=== PATIENT | male | born 1950 | race Caucasian/White ===

== ENCOUNTER 2020-03-27 08:47 | Emergency (ER) | payer MEDICARE, OTHER ==
[~2020-03-27] VITALS: Ht 177.8 cm; Wt 95.3 kg
[2020-03-27] MEDS ORDERED: IV NORMAL SALINE 500 ML BAG IV ONE (09:15)
--- NOTE | 2020-03-27 09:15 | NUR ---
pt had subrapubic catheter for urin retention 2 years
--- NOTE | 2020-03-27 09:15 | NUR ---
Recived pt 69 years male came by [facility] from [facility] awake and alert c/o pain in both leg cramping pt hx a.fib pt had f/c for urine retention and last leal 2 weeks ago and bp in low side 86/57mmhg dineses sob or chest pain
[2020-03-27] MEDS ORDERED: MELA5TAB PO (09:16)
[2020-03-27] MEDS ORDERED: ATOR20TA PO (09:16)
[2020-03-27] MEDS ORDERED: OLAN20TA3 PO (09:16)
[2020-03-27] MEDS ORDERED: ALEN70TA80 PO (09:16)
[2020-03-27] MEDS ORDERED: FURO20TA4 PO (09:16)
[2020-03-27] MEDS ORDERED: ASPI-869 PO (09:16)
[2020-03-27] MEDS ORDERED: MULT-594 PO (09:16)
[2020-03-27] MEDS ORDERED: DEUT12TA PO (09:16)
[2020-03-27] MEDS ORDERED: ESCI5TAB PO (09:16)
[2020-03-27] MEDS ORDERED: UMEC62.5 IH (09:16)
[2020-03-27 09:44] LABS: BASOPHILS # (AUTO) 0.1 K/uL (0.0-8.0); BASOPHILS % (AUTO) 0.7 % (0.0-2.0); EOSINOPHILS # (AUTO) 0.1 K/uL (0.0-0.7); HEMATOCRIT 38.3 % (36.7-47.1); HEMOGLOBIN 13.1 g/dL (12.5-16.3); LYMPHOCYTES # (AUTO) 0.3 K/uL (20.0-40.0); LYMPHOCYTES % (AUTO) 3.5 % (20.5-51.5); MEAN CORPUSCULAR HEMOGLOBIN 32.5 uug (23.8-33.4); MEAN CORPUSCULAR HGB CONC 34 g/dL (32.5-36.3); MEAN CORPUSCULAR VOLUME 95.1 fL (73.0-96.2); MONOCYTES # (AUTO) 0.9 K/uL (2.0-10.0); MONOCYTES % (AUTO) 11.8 % (0.0-11.0); PLATELET COUNT (AUTO) 147 K/uL (152-348); RED BLOOD CELL COUNT(AUTO) 4.03 MIL/uL (4.06-5.63); WHITE BLOOD COUNT (AUTO) 7.3 K/uL (3.6-10.2)
--- NOTE | 2020-03-27 10:00 | NUR ---
blood drow by lab tack blood culure x2 blood drow UA AND UC GOTING from f/c sent to lab inserted ango cath # 20 on lt wrest ivf ns 500ml infused and patent
[2020-03-27 10:14] LABS: BILIRUBIN,DIRECT 0.1 mg/dL (0.0-0.2); BILIRUBIN,TOTAL 0.5 mg/dL (0.2-1.0); CREATININE 0.9 mg/dL (0.6-1.3); POTASSIUM 5.4 mmol/L (3.5-5.1)
[2020-03-27 10:20] LABS: *BILIRUBIN,URIN NEGATIVE (NEGATIVE); *BLOOD, URINE 2+ (NEGATIVE); *CLARITY,URINE SLIGHTLY CLOUDY (CLEAR); *COLOR,URINE YELLOW (YELLOW); *KETONES,URINE NEGATIVE (NEGATIVE); LEUKOCYTE ESTERASE ,URINE 2+ (NEGATIVE); NITRITE, URINE POSITIVE (NEGATIVE); PH,URINE 8.5 (5.0-8.0); UGLUCOSE NEGATIVE (NEGATIVE)
[2020-03-27 10:28] LABS: MAGNESIUM 1.9 mg/dL (1.8-2.4)
[2020-03-27 10:36] LABS: THYROID STIMULATING HORMONE 0.756 mIU/mL (0.358-3.740)
--- NOTE | 2020-03-27 10:54 | NUR ---
compled 500ml nd bp 89/58mmhg DR. KRAUS HERE AT bed side aware about BP 89/58
[2020-03-27] MEDS ORDERED: CEFTRIAXONE 1 G in IV DEXTROSE 5% 50 ML IV ONE (11:00)
[2020-03-27] MEDS ORDERED: ACETAMINOPHEN ES 500 MG TABLET PO ONE (11:00)
--- NOTE | 2020-03-27 11:12 | NUR ---
PT HAD SUPRPUBIC CATHER FOR urin retention not f/c for 2 years
[2020-03-27] MEDS ORDERED: ACETAMINOPHEN ES 500 MG TABLET ONE (11:13)
[2020-03-27] MEDS ORDERED: CEFTRIAXONE /D5W 50ML IVPB **ER PYXIS IV ONE (11:14)
[2020-03-27] MEDS ORDERED: CEPH500C2 PO (11:41)
--- NOTE | 2020-03-27 12:00 | NUR ---
plan of care transfer back to [facility] hand off to Isabella (med tach ) about tx and plan of care d/c back with RX
--- NOTE | 2020-03-27 12:19 | NUR ---
Called kenyatta ( [facility] ) [phone] arrang one will here at [phone] vs stable for pt
[2020-03-27 13:22] LABS: BACTERIA,URINE MANY /HPF (NONE SEEN); SQUAMOUS EPITHELIAL CELL,UR FEW /HPF (NONE SEEN)
[2020-03-27 13:23] LABS: URINE AMORPHOUS PHOSPHATES MODERATE /HPF
--- NOTE | 2020-03-27 13:34 | NUR ---
Removed IV intact, site okay, bandaged.
--- NOTE | 2020-03-27 13:53 | NUR ---
Report and pt d/c instructions given to EMT's, pt transferred.
[2020-03-27 13:54] VITALS: BP 119/71
== END 2020-03-27 13:56 ==
LOC: ER 08:47
DX: R25.2 Cramp and spasm (principal); T83.510A Infection and inflammatory reaction due to cystostomy catheter, initial encounter; Z86.16 Personal history of COVID-19; Z95.0 Presence of cardiac pacemaker; J44.9 Chronic obstructive pulmonary disease, unspecified; Z88.8 Allergy status to other drugs, medicaments and biological substances; Z87.891 Personal history of nicotine dependence; F39 Unspecified mood [affective] disorder; Z79.899 Other long term (current) drug therapy; G24.01 Drug induced subacute dyskinesia; I48.91 Unspecified atrial fibrillation; I50.9 Heart failure, unspecified; Z79.82 Long term (current) use of aspirin; D69.6 Thrombocytopenia, unspecified; E87.5 Hyperkalemia
CPT/HCPCS: 36415; 71045; 80048; 80076; 81001; 83605; 83735; 83880; 84145; 84443; 84484; 85025; 85730; 87040 ×2; 87086; 93005; 96361; 96365; 99285; J0696; 70030-TC; A9150; J3490; J7030

== ENCOUNTER 2020-10-15 12:32 | Emergency (ER) | payer MEDICARE, OTHER ==
[~2020-10-15] VITALS: Ht 175.3 cm; Wt 90.7 kg
[~2020-10-15 12:32] MED LIST: ALEN70TA80 PO; ASPI-869 PO; ATOR20TA PO; CEPH500C2 PO; DEUT12TA PO; ESCI5TAB PO; FURO20TA4 PO; MELA5TAB PO; MULT-594 PO; OLAN20TA3 PO; UMEC62.5 IH
--- NOTE | 2020-10-15 12:40 | NUR ---
Patient brought in by [facility] [id number] for a mechanical fall at residence (assisted living), patient is alert and oriented, states he tripped
--- NOTE | 2020-10-15 12:42 | NUR ---
at bedside for assessment
--- NOTE | 2020-10-15 13:15 | NUR ---
PAtient taken to Radiology for CT of head and neck as well at x-ray of bilateral knees after mechanical fall
--- NOTE | 2020-10-15 14:10 | NUR ---
Per pt may be d/c back to his assisted living facility. Called [facility] for transport, eta 30 mins.
--- NOTE | 2020-10-15 15:19 | NUR ---
patient being picked up by [facility] at this time, [facility] called and informed that patient will be returning, Sister (Stephen) informed of patients status. Patient discharged to home in stable condition. Written and verbal after care instructions given. No signs of acute distress noted. Patient verbalizes understanding of instructions. Stressed follow up or return to ER for worsening s/s.
[2020-10-15 15:25] VITALS: BP 136/71
== END 2020-10-15 15:28 ==
LOC: ER 12:32
DX: M25.562 Pain in left knee (principal); M25.561 Pain in right knee; M85.862 Other specified disorders of bone density and structure, left lower leg; M85.861 Other specified disorders of bone density and structure, right lower leg; Z95.0 Presence of cardiac pacemaker; I48.91 Unspecified atrial fibrillation; Z79.82 Long term (current) use of aspirin; Z79.899 Other long term (current) drug therapy; J44.9 Chronic obstructive pulmonary disease, unspecified; S80.212A Abrasion, left knee, initial encounter; S80.211A Abrasion, right knee, initial encounter; W01.0XXA Fall on same level from slipping, tripping and stumbling without subsequent striking against object, initial encounter; Y92.099 Unspecified place in other non-institutional residence as the place of occurrence of the external cause
CPT/HCPCS: 70450; 72125; A4663

== ENCOUNTER 2021-10-10 13:36 | Emergency (ER) | payer MEDICARE, OTHER ==
[~2021-10-10] VITALS: Ht 182.9 cm; Wt 81.6 kg
[2021-10-10] MEDS ORDERED: UMEC1BLS IH (14:00)
[2021-10-10] MEDS ORDERED: LOPE2TAB25 PO (14:00)
[2021-10-10] MEDS ORDERED: BUDE10.22 INH (14:00)
[2021-10-10] MEDS ORDERED: LORA-259 PO (14:00)
[2021-10-10] MEDS ORDERED: BACL10TA PO (14:00)
[2021-10-10] MEDS ORDERED: TRAZ-257 PO (14:00)
[2021-10-10] MEDS ORDERED: OLAN5TAB3 PO (14:00)
[2021-10-10] MEDS ORDERED: POLY17PO4 PO (14:00)
[2021-10-10] MEDS ORDERED: TAMS-3 PO (14:00)
[2021-10-10] MEDS ORDERED: ACET-73 PO (14:00)
[2021-10-10] MEDS ORDERED: diphenhydrAMINE 50 MG/1 ML VIAL IV ONE (14:15)
[2021-10-10] MEDS ORDERED: IV NORMAL SALINE 500 ML BAG IV ONE (14:15)
[2021-10-10 14:28] LABS: CARBON DIOXIDE 27 mmol/L (21-32); CHLORIDE 98 mmol/L (98-107); CREATININE 1.1 mg/dL (0.6-1.3); GLUCOSE 103 mg/dL (74-106); POTASSIUM 4.4 mmol/L (3.5-5.1); UREA NITROGEN, BLOOD 7 mg/dL (7-18)
[2021-10-10 14:30] LABS: HEMATOCRIT 36.4 % (36.7-47.1); MEAN CORPUSCULAR HEMOGLOBIN 30.1 uug (23.8-33.4); MEAN CORPUSCULAR VOLUME 90.2 fL (73.0-96.2); PLATELET COUNT (AUTO) 231 K/uL (152-348)
[2021-10-10 14:40] LABS: ALANINE AMINOTRANSFERASE 13 U/L (16-63); ALKALINE PHOSPHATASE 106 U/L (50-136); ASPARTATE AMINOTRANSFERASE 14 U/L (15-37); BILIRUBIN,DIRECT 0.3 mg/dL (0.0-0.2); CREATINE KINASE, TOTAL 109 U/L (39-308); TOTAL PROTEIN, SERUM 6.1 g/dL (6.4-8.2)
--- NOTE | 2021-10-10 14:59 | NUR ---
pt is in room #2b. dr Torres evaluated the pt.
[2021-10-10 15:00] LABS: *BILIRUBIN,URIN NEGATIVE (NEGATIVE); *CLARITY,URINE SLIGHTLY CLOUDY (CLEAR); *COLOR,URINE YELLOW (YELLOW); *KETONES,URINE NEGATIVE (NEGATIVE); *UROBILINOGEN,URINE 0.2 E.U./dl (NORMAL); LEUKOCYTE ESTERASE ,URINE 3+ (NEGATIVE); NITRITE, URINE POSITIVE (NEGATIVE); UGLUCOSE NEGATIVE (NEGATIVE)
[2021-10-10 15:02] LABS: *BLOOD, URINE TRACE (NEGATIVE)
[2021-10-10] MEDS ORDERED: diphenhydrAMINE 50 MG/1 ML VIAL ONE (15:02)
[2021-10-10] MEDS ORDERED: SULF1TAB48 PO (15:44)
[2021-10-10] MEDS ORDERED: SULFAMETH/TRIMETH 800/160 MG TABLET PO ONE (15:45)
[2021-10-10] MEDS ORDERED: SULFAMETH/TRIMETH 800/160 MG TABLET ONE (15:57)
--- NOTE | 2021-10-10 17:55 | NUR ---
PT WAS D/C'd TO HIS NURSING FACILITY VIA [facility]. D/C INSTRUCTIONS GIVEN TO THE PT BY DR BOX.
[2021-10-10 17:56] VITALS: BP 113/69
[2021-10-10 18:04] LABS: BACTERIA,URINE MODERATE /HPF (NONE SEEN); SQUAMOUS EPITHELIAL CELL,UR FEW /HPF (NONE SEEN)
== END 2021-10-10 17:57 | disposition home or self-care (01) ==
LOC: ER 13:36
DX: Z04.3 Encounter for examination and observation following other accident (principal); N39.0 Urinary tract infection, site not specified; G25.71 Drug induced akathisia; G24.01 Drug induced subacute dyskinesia; G25.81 Restless legs syndrome; F17.200 Nicotine dependence, unspecified, uncomplicated; F39 Unspecified mood [affective] disorder; Z79.899 Other long term (current) drug therapy; J44.9 Chronic obstructive pulmonary disease, unspecified; I48.91 Unspecified atrial fibrillation; Z95.0 Presence of cardiac pacemaker; Z79.82 Long term (current) use of aspirin; N13.9 Obstructive and reflux uropathy, unspecified; Z93.6 Other artificial openings of urinary tract status; I50.30 Unspecified diastolic (congestive) heart failure; I48.92 Unspecified atrial flutter; G31.84 Mild cognitive impairment of uncertain or unknown etiology; D64.9 Anemia, unspecified; M43.22 Fusion of spine, cervical region; M47.812 Spondylosis without myelopathy or radiculopathy, cervical region
CPT/HCPCS: 99285; 70450; 96374; 71045; 96361; 80076; 80048; 81001; 82550; 85025; 87186; 87086; 87077; 84484; 36415; 93005; 72170; 72125; J1200; J7040; A4663

== ENCOUNTER 2021-10-23 21:05 | Inpatient (IN) | payer MEDICARE, OTHER ==
[~2021-10-23] VITALS: Ht 172.7 cm; Wt 78.1 kg
[~2021-10-23 21:05] MED LIST changes: +ACET-73 PO; +BACL10TA PO; +BUDE10.22 INH; -CEPH500C2 PO; +LOPE2TAB25 PO; +LORA-259 PO; +OLAN5TAB3 PO; +POLY17PO4 PO; +SULF1TAB48 PO; +TAMS-3 PO; +TRAZ-257 PO; +UMEC1BLS IH
--- NOTE | 2021-10-23 21:28 | NUR ---
Dr. Guevara at bedside for MSE.
[2021-10-23] MEDS ORDERED: IV NORMAL SALINE 1000 ML BAG IV ONE (22:00)
--- NOTE | 2021-10-23 22:16 | NUR ---
X Ray at bedside
[2021-10-23] MEDS ORDERED: OXYCODONE/APAP 5-325 MG TABLET ONE (22:24)
[2021-10-23 22:27] LABS: MEAN CORPUSCULAR HEMOGLOBIN 29.9 uug (23.8-33.4); MEAN CORPUSCULAR VOLUME 91.3 fL (73.0-96.2); PLATELET COUNT (AUTO) 337 K/uL (152-348)
[2021-10-23] MEDS ORDERED: OXYCODONE/APAP 5-325 MG TABLET PO ONE (22:30)
[2021-10-23 22:33] LABS: CREATININE 1.3 mg/dL (0.6-1.3); POTASSIUM 3.7 mmol/L (3.5-5.1)
[2021-10-23] MEDS ORDERED: ASPI81TA31 PO (22:38)
[2021-10-23 22:45] LABS: BILIRUBIN,DIRECT 0.5 mg/dL (0.0-0.2); BILIRUBIN,TOTAL 1.7 mg/dL (0.2-1.0); TOTAL PROTEIN, SERUM 6.7 g/dL (6.4-8.2)
[2021-10-23 23:27] LABS: *BILIRUBIN,URIN 1+ (NEGATIVE); *BLOOD, URINE NEGATIVE (NEGATIVE); *COLOR,URINE YELLOW (YELLOW); *KETONES,URINE TRACE (NEGATIVE); LEUKOCYTE ESTERASE ,URINE 1+ (NEGATIVE); NITRITE, URINE NEGATIVE (NEGATIVE); UGLUCOSE NEGATIVE (NEGATIVE)
[2021-10-23 23:30] LABS: *CLARITY,URINE HAZY (CLEAR)
[2021-10-24] MEDS ORDERED: SWABABLE VALVE TRANSFER SET EA MC ONE (00:04)
[2021-10-24] MEDS ORDERED: IV NORMAL SALINE 250 ML IV ONE (00:05)
[2021-10-24] MEDS ORDERED: IOHEXOL 350 100 ML INFUS..BTL ONE (00:06)
--- NOTE | 2021-10-24 00:07 | NUR ---
Pt out of ER for CT.
--- NOTE | 2021-10-24 00:41 | NUR ---
Pt back to ER from CT.
[2021-10-24] MEDS ORDERED: PIPERACILLIN SODIUM/TAZOBACTAM 3.375 G in IV DEXTROSE 5% 50 ML IV ONE (01:00)
[2021-10-24] MEDS ORDERED: PIPERACILLIN/TAZOBACTAM/D5W 50 ML IV ONE (01:09)
--- NOTE | 2021-10-24 02:43 | NUR ---
Called [facility] to page Anh Stewart NP.
[2021-10-24] MEDS ORDERED: levoFLOXacin 500 MG/D5W 500 MG in PREMIXED 1 EACH IV SCH (03:00)
[2021-10-24] MEDS ORDERED: IV NS 1000 ML 1,000 ML IV PRN (03:00)
[2021-10-24] MEDS ORDERED: ONDANSETRON 4 MG/2 ML VIAL IV PRN (03:00)
--- NOTE | 2021-10-24 03:00 | NUR ---
Dr. Guevara on panel call with Anh Stewart NP.
[2021-10-24] MEDS ORDERED: IV NORMAL SALINE 1000 ML BAG IV ONE (03:15)
[2021-10-24] MEDS ORDERED: FLEET ENEMA 133 ML BOTTLE RC ONE ×2 (03:30→06:00)
[2021-10-24] MEDS ORDERED: VANCOMYCIN IV 1,750 MG in IV DEXTROSE 5% 500 ML IV ONE (03:45)
--- NOTE | 2021-10-24 03:51 | NUR ---
Report given to Elizabet ALBRIGHT Tele.
--- NOTE | 2021-10-24 05:00 | NUR ---
Received pt from er via chang. Pt on 2l nasal cannula. Dx: Severe sepsis . Under Pat RADIOLOGIC TECHNOLOGIST MAMMOGRAM. Belonging list done. Admission process and care plan initiated. [facility] assessment done. Pt has skin issues and photos put to chart. Safety and comfort provided. Will continue to monitor.
[2021-10-24 05:30] VITALS: BP 98/60
--- NOTE | 2021-10-24 05:32 | NUR ---
Verify the pt status if its tele or tele td. As per Pat pt will be on telemetry. Give update regarding the fluid challenge for sepsis.
[2021-10-24] MEDS ORDERED: METRONIDAZOLE 500 MG/NS 100ML 500 MG in PREMIXED 1 EACH IV SCH (06:00)
--- NOTE | 2021-10-24 06:05 | NUR ---
Small Bowel Follow through discontinue and keep disimpacting the pt as per Pat GEODETIC COMPUTATOR ordered.
--- NOTE | 2021-10-24 06:59 | NUR ---
Pt in no acute distress. Pt on 2l nasal cannula. Iv intact. Pt given Fleet enema and disimpacted. Safety and comfort provided.All needs are met. Will endorse to incoming nurse for continuity of care.
[2021-10-24] MEDS: PANTOPRAZOLE SODIUM 40 MG VIAL IV SCH (08:18)
[2021-10-24] MEDS: levoFLOXacin 500 MG/D5W 500 MG in PREMIXED 1 EACH IV SCH (08:18)
[2021-10-24 09:01] LABS: HEMATOCRIT 38.5 % (36.7-47.1); MEAN CORPUSCULAR HEMOGLOBIN 29.9 uug (23.8-33.4); MEAN CORPUSCULAR VOLUME 92.3 fL (73.0-96.2); PLATELET COUNT (AUTO) 344 K/uL (152-348)
--- NOTE | 2021-10-24 09:01 | NUR ---
Followed up with lab for the test per MD. Per lab, they will see patient shortly.
[2021-10-24 09:46] LABS: CREATININE 1.2 mg/dL (0.6-1.3); POTASSIUM 4.6 mmol/L (3.5-5.1)
[2021-10-24] MEDS: METRONIDAZOLE 500 MG/NS 100ML 500 MG in PREMIXED 1 EACH IV SCH ×2 (10:10→17:16)
[2021-10-24] MEDS: VANCOMYCIN IV 750 MG in IV DEXTROSE 5% 250 ML IV SCH ×2 (11:20→22:32)
[2021-10-24 11:32] VITALS: BP 89/53
--- NOTE | 2021-10-24 11:42 | NUR ---
Informed MD, patient bp 89/53mmHg, HR 84, saturation 100% on 2L RA. MD order to give 500ml NS.
[2021-10-24] MEDS ORDERED: IV NORMAL SALINE 500 ML IV ONE (12:15)
--- NOTE | 2021-10-24 13:25 | NUR ---
Conservator Charmaine ([phone]) called and gave the number of the PCP, Dr. Buck Hancock for update/history of the patient. Informed Dr Redman.
--- NOTE | 2021-10-24 13:55 | NUR ---
BP improved after bolus. latest reading 101/56mmHg, HR81. Pale skin noted. no distress identified. will continue to monitor.
[2021-10-24] MEDS ORDERED: TAMS-3 PO (14:03)
[2021-10-24] MEDS ORDERED: TRAZ-257 PO (14:03)
[2021-10-24] MEDS ORDERED: ACET-73 PO (14:03)
[2021-10-24] MEDS ORDERED: BUDE10.2 IH (14:03)
[2021-10-24] MEDS ORDERED: POLY17PO4 PO (14:03)
[2021-10-24] MEDS ORDERED: MULT-594 PO (14:03)
[2021-10-24] MEDS ORDERED: BACL10TA PO (14:03)
[2021-10-24] MEDS ORDERED: LOPE2CAP PO (14:03)
[2021-10-24] MEDS ORDERED: LORA-259 PO (14:03)
[2021-10-24 15:19] LABS: BACTERIA,URINE MANY /HPF (NONE SEEN)
[2021-10-24 15:20] LABS: SQUAMOUS EPITHELIAL CELL,UR FEW /HPF (NONE SEEN); YEAST,URINE MODERATE /HPF (NONE SEEN)
[2021-10-24 15:43] VITALS: BP 96/44
--- NOTE | 2021-10-24 16:09 | NUR ---
Noted with involuntary leg movement (bilateral). made aware.
[2021-10-24] MEDS: LORAZEPAM 1 MG TABLET PO PRN ×2 (17:16→23:34)
--- NOTE | 2021-10-24 18:21 | NUR ---
Patient with multiple watery BM during the shift. No other concern noted. ativan given PRN as ordered. UA collected for culture. Unable to get sample for resp. culture as ordered, no secretions obtained at this time. Will endorse to the next shift for continuity of care.
--- NOTE | 2021-10-24 19:30 | NUR ---
Received patient lying in bed. AAOX3. In no acute distress. Denies any pain or SOB. O2 at 2LPM via NC in place. O2 sat at 99%. IV site on right AC intact and patent. IVF infusing. V Pacing on tele with HR of 73/min. Suprapubic catheter intact and draining via gravity. Needs assessed and attended to. Safety measure initiated and call light within reached.
[2021-10-24 20:27] VITALS: BP 108/59
[2021-10-25] MEDS: ACETAMINOPHEN 325 MG TABLET PO PRN ×2 (00:24→17:20)
[2021-10-25 00:35] VITALS: BP 102/55
[2021-10-25] MEDS: METRONIDAZOLE 500 MG/NS 100ML 500 MG in PREMIXED 1 EACH IV SCH ×3 (01:10→18:44)
--- NOTE | 2021-10-25 01:43 | NUR ---
Patient still complaining of restless leg inspite of getting Ativan 1MG po and Tylenol 650mg tablet PO and requesting for baclofen. Informed SHOT DROPPER Yakov Stewart and order to give patient one dose of Baclofen 10mg PO. Will carry out order.
[2021-10-25] MEDS ORDERED: BACLOFEN 10 MG TABLET PO ONE (01:45)
--- NOTE | 2021-10-25 02:45 | NUR ---
Noted IV on right AC dislodge. Started new IV on right wrist #20G.
[2021-10-25 04:35] VITALS: BP 94/53
--- NOTE | 2021-10-25 06:15 | NUR ---
Patient slept off and on during the night. In no acute distress. Remains on O2 at 2LPM via NC. Denies any SOB. No adverse reaction noted from IV antibiotics. V pacing on tele with HR of 60/min. Supra pubic catheter intact and draining via gravity. Needs attended to and met. Safety measure maintained and call light within reached.
[2021-10-25 07:23] LABS: HEMATOCRIT 34.3 % (36.7-47.1); MEAN CORPUSCULAR HEMOGLOBIN 30.6 uug (23.8-33.4); MEAN CORPUSCULAR VOLUME 91.8 fL (73.0-96.2); PLATELET COUNT (AUTO) 271 K/uL (152-348)
[2021-10-25 07:46] LABS: CREATININE 0.9 mg/dL (0.6-1.3); POTASSIUM 4.1 mmol/L (3.5-5.1)
[2021-10-25 07:52] LABS: BILIRUBIN,TOTAL 0.7 mg/dL (0.2-1.0); MAGNESIUM 2.6 mg/dL (1.8-2.4); PHOSPHOROUS 3.3 mg/dL (2.5-4.9); TOTAL PROTEIN, SERUM 4.9 g/dL (6.4-8.2)
[2021-10-25 08:18] LABS: THYROID STIMULATING HORMONE 2.233 mIU/mL (0.358-3.740)
--- NOTE | 2021-10-25 08:20 | NUR ---
continue Baclopen 10mg tid prn per md orders.
[2021-10-25] MEDS: levoFLOXacin 500 MG/D5W 500 MG in PREMIXED 1 EACH IV SCH (08:56)
[2021-10-25] MEDS: PANTOPRAZOLE SODIUM 40 MG VIAL IV SCH (08:57)
[2021-10-25] MEDS: VANCOMYCIN IV 750 MG in IV DEXTROSE 5% 250 ML IV SCH ×2 (11:28→22:58)
[2021-10-25 11:36] VITALS: BP 84/54
[2021-10-25] MEDS: BACLOFEN 10 MG TABLET PO PRN (15:18)
[2021-10-25] MEDS: LORAZEPAM 1 MG TABLET PO PRN ×2 (15:18→23:47)
[2021-10-25 16:00] VITALS: BP 87/56
--- NOTE | 2021-10-25 16:45 | NUR ---
PT IS ANXIOUS. LOLI WEISS PER ORDERED Addendum: 10/25/21 at 1852 by DAVY FONSECA RN ATIVAN EFFECTIVE. PT CALM DOWN AND RELAX
[2021-10-25] MEDS: REMEDY ESSENTIAL ZINC PASTE 113 GM TOP SCH (17:29)
--- NOTE | 2021-10-25 19:30 | NUR ---
Received patient lying in bed. AAOX3. In no acute distress. Denies any pain or SOB at this time. O2 at 2LPM via NC in place. O2 sat at 96%. IV site on right wrist intact and patent. IVF infusing. Suprapubic catheter intact and draining via gravity. Needs assessed and attended to. Safety measure initiated and call light within reached.
[2021-10-25 20:00] VITALS: BP 94/52
[2021-10-26] MEDS: BACLOFEN 10 MG TABLET PO PRN ×2 (01:02→14:18)
[2021-10-26] MEDS: METRONIDAZOLE 500 MG/NS 100ML 500 MG in PREMIXED 1 EACH IV SCH (01:12)
[2021-10-26 04:00] VITALS: BP 98/50
--- NOTE | 2021-10-26 05:54 | NUR ---
In no acute distress. Remains on O2 at 2LPM via NC. Denies any pain or SOB. No adverse reaction noted from IV antibiotics. Supra pubic catheter intact and draining via gravity. Needs attended to and met. Safety measure maintained and call light within reached.
[2021-10-26 06:21] LABS: HEMATOCRIT 33.2 % (36.7-47.1); MEAN CORPUSCULAR HEMOGLOBIN 30.2 uug (23.8-33.4); MEAN CORPUSCULAR VOLUME 91.9 fL (73.0-96.2); PLATELET COUNT (AUTO) 222 K/uL (152-348)
[2021-10-26] MEDS ORDERED: PANTOPRAZOLE SODIUM 40 MG TABLET.DR PO SCH (07:00)
[2021-10-26 07:15] LABS: CREATININE 0.8 mg/dL (0.6-1.3); POTASSIUM 3.8 mmol/L (3.5-5.1)
[2021-10-26] MEDS: levoFLOXacin 500 MG/D5W 500 MG in PREMIXED 1 EACH IV SCH (09:22)
[2021-10-26] MEDS: REMEDY ESSENTIAL ZINC PASTE 113 GM TOP SCH (09:22)
[2021-10-26] MEDS: METRONIDAZOLE 500 MG TABLET PO SCH ×2 (09:22→14:18)
[2021-10-26] MEDS ORDERED: LOPERAMIDE HCL 2 MG CAPSULE PO PRN (09:30)
[2021-10-26] MEDS: VANCOMYCIN IV 750 MG in IV DEXTROSE 5% 250 ML IV SCH (11:14)
[2021-10-26 11:37] VITALS: BP 83/49
[2021-10-26] MEDS: ACETAMINOPHEN 325 MG TABLET PO PRN (14:18)
[2021-10-26] MEDS ORDERED: LEVO500T90 PO (14:31)
--- NOTE | 2021-10-26 14:55 | NUR ---
REPORT GIVEN TO ISAI ALBRIGHT OF [facility].
[2021-10-26 16:00] VITALS: BP 92/57
--- NOTE | 2021-10-26 17:25 | NUR ---
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 REPORT GIVEN TO THE EMT. DECREASE BP 82/56 61HR WAS NOTED. CALLED [facility] TO REPORT IT. THEY SAID OKAY THEY WILL ACCEPT THE PT. PT IS AOX 3-4. ASYMPTOMATIC. TONYA SITER WAS NOTIFIED.
[2021-10-26] MEDS ORDERED: VANCOMYCIN IV 1,000 MG in IV DEXTROSE 5% 250 ML IV SCH (21:00)
== END 2021-10-26 17:20 | DRG 393 ==
LOC: ER 21:15 → TELE3 10-24 03:25 → MEDSURG3 10-25 11:21
PROVIDERS: ADMIT Internal Medicine; ATTEND Internal Medicine
DX: K62.89 Other specified diseases of anus and rectum (principal); E43 Unspecified severe protein-calorie malnutrition; J15.6 Pneumonia due to other Gram-negative bacteria; E87.1 Hypo-osmolality and hyponatremia; I48.92 Unspecified atrial flutter; I50.32 Chronic diastolic (congestive) heart failure; M48.56XA Collapsed vertebra, not elsewhere classified, lumbar region, initial encounter for fracture; E11.9 Type 2 diabetes mellitus without complications; E88.09 Other disorders of plasma-protein metabolism, not elsewhere classified; I48.91 Unspecified atrial fibrillation; I11.0 Hypertensive heart disease with heart failure; Z86.16 Personal history of COVID-19; Z87.891 Personal history of nicotine dependence; Z79.82 Long term (current) use of aspirin; Z95.0 Presence of cardiac pacemaker; K52.9 Noninfective gastroenteritis and colitis, unspecified; N30.90 Cystitis, unspecified without hematuria; I71.4 Abdominal aortic aneurysm, without rupture; G24.01 Drug induced subacute dyskinesia; R53.1 Weakness; F09 Unspecified mental disorder due to known physiological condition; Z68.26 Body mass index [BMI] 26.0-26.9, adult; Z20.822 Contact with and (suspected) exposure to COVID-19
CPT/HCPCS: 36415; 71045; 74018; 83605; 83735; 83935; 84100; 84300; 84443; 85025; 86803; 87040; 87086; 87806; 94760; A6209; C9113; G0378; J1956; J2543; J3370; J3490; J7040; J7050; J7060; Q9967